=== PATIENT | male | born 1990 | race Caucasian/White ===

== ENCOUNTER 2019-09-21 20:38 | Emergency (ER) | payer OTHER ==
[2019-09-21] MEDS ORDERED: LIDOCAINE 2% JELLY 30 ML TUBE TOP ONE (21:27)
[2019-09-21 21:30] VITALS: BP 137/75
--- NOTE | 2019-09-21 21:30 | ER Document Report ---
HPI - HPI Time Seen by Provider: 09/21/19 21:14 Pain Level: 2 Notes: Patient is a 28-year-old male with no significant past medical history who presents complaining of noticing red blood when he wiped and then subsequent bowel movement where he had some blood in the toilet bowl over the past 1 to 2 days. Patient states that he has issues with constipation and patient states that he had a very hard stool that he forced out and felt like something tore. That was when he initially saw the blood when he wiped and then had pain with the next defecation and noticed the blood in the stool. Patient does compare to passing "groundglass." He is otherwise eating and drinking without difficulty. He is urinating normally. Denies drug allergies. No other concerns or complaints. Denies any headache, fever, neck pain, URI, sore throat, chest pain, palpitations, syncope, cough, shortness of breath, wheeze, dyspnea, abdominal pain, nausea/vomiting/diarrhea, urinary retention, dysuria, hematuria, or rash. - ROS Systems Reviewed and Negative: Yes All other systems reviewed and negative Past Medical History - Social History Smoking Status: Never Smoker Chew tobacco use (# tins/day): No Frequency of alcohol use: None Drug Abuse: None Family History: Reviewed & Not Pertinent Patient has suicidal ideation: No Patient has homicidal ideation: No Vertical Provider Document - CONSTITUTIONAL Agree With Documented VS: Yes Notes: PHYSICAL EXAMINATION: GENERAL: Well-appearing, well-nourished and in no acute distress. LUNGS: Breath sounds clear to auscultation bilaterally and equal. No wheezes rales or rhonchi. HEART: Regular rate and rhythm without murmurs, rubs, gallops. ABDOMEN: Soft, nontender, nondistended abdomen. No guarding, no rebound. Normal bowel sounds present. No CVA tenderness bilaterally. Rectal: no obvious hemorrhoid, lesion, or superficial fissure noted. Suspect deeper fissure. Non-tender. Musculoskeletal: FROM to passive/active. Strength 5+/5. Extremities: No cyanosis, clubbing, or edema b/l. Peripheral pulses 2+. Capillary refill less than 3 seconds. NEUROLOGICAL: Normal speech, normal gait. PSYCH: Normal mood, normal affect. SKIN: Warm, Dry, normal turgor, no rashes or lesions noted. - INFECTION CONTROL TRAVEL OUTSIDE OF THE .S. IN LAST 30 DAYS: No Course - Re-evaluation Re-evalutation: 09/21/19 21:33 Patient is an afebrile, well-hydrated, 28-year-old male who presents with blood in his stool which I suspect to be a fissure based on his history and presentation of illness. Vitals are acceptable without significant tachycardia, tachypnea, hypoxia. PE is otherwise unremarkable. Patient is nontoxic- appearing and is tolerating p.o. without difficulty. No labs or imaging warranted at this time. Xylocaine was dispensed today. Reviewed anal fissures and treatment including stool softeners. Abdomen is otherwise soft and nontender. Low suspicion/risk for acute appendicitis, bowel obstruction, acute cholecystitis, perforated diverticulitis, incarcerated hernia, pancreatitis, perforated ulcer, peritonitis, sepsis, testicular torsion, or other systemic emergent condition at this time. Patient is aware that his condition can change from initial presentation and he needs to monitor symptoms closely and seek medical attention if any acute changes. Conservative measures otherwise for symptoms. Recheck with PCM in 1wk. Consider consult with a Gen surg/hog raiser. Return to the ED with any worsening/concerning symptoms otherwise as reviewed in discharge. Patient is in agreement. Discharge - Discharge Clinical Impression: Anal fissure Condition: Stable Disposition: HOME, SELF-CARE Additional Instructions: Maintain adequate fluid and food intake increase fiber/water in diet Stool softeners Monitor for any worsening symptoms Make sure you are staying hydrated enough to urinate and have normal BM's Recheck with your PCM in 1 week Consider consult with Gastroenterology/general surgery for ongoing/worsening symptoms Return to the ED with any worsening symptoms and/or development of fever, headache, chest pain, palpitations, syncope, shortness of breath, trouble breathing, abdominal pain, n/v/d, blood in stool/urine, weakness, or other worsening symptoms that are concerning to you. Forms: Elevated Blood Pressure Referrals: OTONIEL BOSE MD [ACTIVE STAFF] - Follow up as needed
[2019-09-21] MEDS ORDERED: LIDOCAINE 2% JELLY 30 ML TUBE ONE (21:43)
== END 2019-09-21 21:49 | disposition home or self-care (01) ==
LOC: ER 20:38
DX: K60.2 Anal fissure, unspecified (principal); K92.1 Melena
CPT/HCPCS: 99283